=== PATIENT | male | born 1955 | race Caucasian/White ===

== ENCOUNTER 2024-12-12 14:43 | Emergency (ER) | payer MEDICARE, OTHER ==
[~2024-12-12] VITALS: Ht 180.3 cm; Wt 70.3 kg
[2024-12-12 19:39] VITALS: BP 150/90; TEMP 98.4; O2SAT 97
== END 2024-12-12 19:47 | disposition home or self-care (01) ==
LOC: ER 14:50
DX: R05.9 Cough, unspecified (principal); I10 Essential (primary) hypertension; E11.9 Type 2 diabetes mellitus without complications; Z20.822 Contact with and (suspected) exposure to COVID-19
CPT/HCPCS: 71045-TC